=== PATIENT | female | born 1970 | race Caucasian/White ===

== ENCOUNTER 2018-03-23 12:39 | Emergency (ER) | payer OTHER ==
--- NOTE | 2018-03-23 13:36 | UC ---
Dental HPI - HPI Summary HPI Summary: 47 y/o female presents to the urgent care c/o Rt upper jaw dental pain since yesterday. Pt reports she was eating a cheeseburger and she fracture her molar. This morning she woke up w/ pain, swelling and it a taste " like infection". Pain s 12/26 w/ chewing. Pt has an appt w/ [facility] on Monday. Pt denies fever, trismus, SOB, chest pain, abdominal pain, N/V/D, MISHRA. - History of Current Complaint Chief Complaint: UCSkin Stated Complaint: DENTAL PAIN Time Seen by Provider: 03/23/18 13:35 Hx Obtained From: Patient ?: No Onset/Duration: Gradual Onset, Lasting Days - 1 day, Still Present, Worse Since - today Severity: Moderate Pain Intensity: 7 Pain Scale Used: 0-10 Numeric Aggravating Factor(s): Chewing Alleviating Factor(s): OTC Meds - Allergies/Home Medications Allergies/Adverse Reactions: Allergies Allergy/AdvReac Type Severity Reaction Status Date / Time amoxicillin Allergy Anaphylatic Verified 03/23/18 13:18 Shock bee venom protein (honey bee) Allergy Anaphylatic Verified 03/23/18 13:18 Shock cefaclor [From Ceclor] Allergy Hives Verified 03/23/18 13:18 Penicillins Allergy Anaphylatic Verified 03/23/18 13:18 Shock Home Medications: Home Medications EPINEPHrine [Epipen] 1 unit IM ONCE PRN 03/23/18 [History Confirmed 03/23/18] Propranolol HCl [Inderal LA] 60 mg PO ONCE PRN 03/23/18 [History Confirmed 03/23] SUMAtriptan succinate [Imitrex] 50 mg PO ONCE PRN 03/23/18 [History Confirmed ] PMH/Surg Hx/FS Hx/Imm Hx Previously Healthy: Yes Neurological History: Migraine - Surgical History Surgical History: Yes Surgery Procedure, Year, and Place: hysterectomy. . gallbladder removal. tooth removal. appendectomy - Family History Family History: Stroke - Social History Occupation: Employed Full-time Lives: With Family Alcohol Use: Occasionally Substance Use Type: None Smoking Status (MU): Light Every Day Tobacco Smoker Amount Used/How Often: 1 ppd Have You Smoked in the Last Year: Yes Household Exposure Type: Cigarettes Review of Systems Constitutional: Negative Skin: Negative Eyes: Negative ENT: Dental Pain - broken molar Respiratory: Negative Cardiovascular: Negative Gastrointestinal: Negative Genitourinary: Negative Motor: Negative Neurovascular: Negative Musculoskeletal: Negative Neurological: Negative Psychological: Negative Is Patient Immunocompromised?: No All Other Systems Reviewed And Are Negative: Yes Physical Exam - Summary Physical Exam Summary: Vital Signs Reviewed: Yes General: Well-Appearing, No Pain Distress, Well-Nourished female Eyes: Positive: Conjunctiva Clear - PERRLA, EOMI, ENT: Positive: Normal ENT inspection, Hearing grossly normal, Pharynx normal, TMs normal - B/L external ear canals clear,. Negative: Tonsillar swelling, Tonsillar exudate, Trismus Dental: Positive: Gross Decay/Caries w/ fracture molars #3 and 4 , Abscess @ - mild gingival swelling and erythema, tender to percussion. involves tissue surrounding the teeth #3 and 4, Cervical Lymphadenopathy - anterior-Periodontal : involves tissue surrounding the teeth. Periapical: Neck: Positive: Supple Respiratory: Positive: Chest non-tender, Lungs clear, Normal breath sounds, No respiratory distress Cardiovascular: Positive: RRR, No Murmur, Pulses Normal, Brisk Capillary Refill Abdomen Description: Positive: Nontender, No Organomegaly, Soft. Negative: CVA Tenderness (R), CVA Tenderness (L) Bowel Sounds: Positive: Present Musculoskeletal: Positive: Strength Intact, ROM Intact, No Edema Neurological Exam: Normal Psychological Exam: Normal Skin Exam: Normal Triage Information Reviewed: Yes Vital Signs: Initial Vital Signs Temp 97.7 F 03/23/18 13:12 Pulse 65 03/23/18 13:12 Resp 18 03/23/18 13:12 BP 119/68 03/23/18 13:12 Pulse Ox 100 03/23/18 13:12 Dental Complaint Course/Dx - Course Course Of Treatment: 47 y/o female presents to the urgent care c/o Rt upper jaw dental pain since yesterday. Pt reports she was eating a cheeseburger and she fracture her molar. This morning she woke up w/ pain, swelling and it a taste " like infection". Pain s 12/26 w/ chewing. Pt has an appt w/ [facility] on Monday. Pt denies fever, trismus, SOB, chest pain, abdominal pain, N/V/D, MISHRA. Hx obtained. Pt w/ Gross Decay/Caries w/ fracture molars #3 and 4 , Abscess @ - mild gingival swelling and erythema, tender to percussion. involves tissue surrounding the teeth #3 and 4 on examination. Pt with dental abscess on examination. Pt given viscous Lidocaine at the clinic to alleviate symptoms. Pt Rx Clindamycin PO and Ibuprofen PO for pain. Pt strongly advised to f/u with her Dentist as soon as possible further evaluation and treatment. D/c instructions explained. Pt understood and agreed with plan of care. Left the clinic ambulating. - Differential Dx/Diagnosis Differential Diagnosis/Dx: Dental Abscess, Dental Caries, Gingivitis, Odontogenic Pain, Peridontic Disease, Peritonsillar Abcess Provider Diagnoses: 1- Dental abscess on molar 3 and 4 Discharge - Sign-Out/Discharge Documenting (check all that apply): Patient Departure - D/c home All imaging exams completed and their final reports reviewed: No Studies - Discharge Plan Condition: Stable Disposition: HOME Prescriptions: Clindamycin Cap(NF) [Clindamycin Cap 300 mg Cap(NF)] 300 mg PO TID #30 cap Ibuprofen TAB* [Motrin TAB* 800 MG] 800 mg PO Q6H PRN #30 tab PRN Reason: dental pain Patient Education Materials: Dental Abscess (ED) Referrals: [facility] [place] [facility] [Outside] - 2 Days Additional Instructions: 1-Please take full course of antibiotic to avoid resistance. 2- Take Ibuprofen PO as instructed after meals to alleviate pain and swelling. 3- F/u with your Dentist or Dental List provided as soon as possible for further treatment. 4- If symptoms do not improve or worsen please return to the urgent care or f/u with your PCP 2 days for further evaluation and treatment - Billing Disposition and Condition Condition: STABLE Disposition: Home
== END 2018-03-23 14:10 | disposition home or self-care (01) ==
LOC: UCEAST 12:39
DX: K04.7 Periapical abscess without sinus (principal); Z88.0 Allergy status to penicillin; Z88.1 Allergy status to other antibiotic agents; F17.210 Nicotine dependence, cigarettes, uncomplicated
CPT/HCPCS: 99202; G0463

== ENCOUNTER 2019-04-17 19:22 | Emergency (ER) | payer MEDICAID, OTHER ==
--- NOTE | 2019-04-17 20:54 | UC ---
Complaint Female HPI - HPI Summary HPI Summary: 48 yo woman 15 years post TAH_BSO for endometriosus, with 1 week hx of progressive vulvar pain and awareness of an enlarging cyst on the anterior left labia. Has used monitat without relief. Has taken ibuprofen 3200mg today (800mg x 4 doses) and 650mg x 2 today. States no hx of abnormal paps or HPV. - History Of Current Complaint Chief Complaint: UCGU Stated Complaint: PERSONAL ISSUE Time Seen by Provider: 04/17/19 20:44 Hx Obtained From: Patient Onset/Duration: Gradual Onset, Lasting Days Timing: Constant Severity Initially: Moderate Severity Currently: Severe Pain Intensity: 7 Character: Sharp, Burning Aggravating Factor(s): Other - sitting, cannot put pressure on the perineal area. Alleviating Factor(s): Meds - overuse of ibuprofen. Associated Signs And Symptoms: Positive: Vaginal Bleeding/Discharge. Negative: Fever, Back Pain - Risk Factors Ectopic Risk Factor: Negative Ovarian Torsion Risk Factor: Negative - Allergies/Home Medications Allergies/Adverse Reactions: Allergies Allergy/AdvReac Type Severity Reaction Status Date / Time amoxicillin Allergy Anaphylatic Verified 04/17/19 19:36 Shock bee venom protein (honey bee) Allergy Anaphylatic Verified 04/17/19 19:36 Shock cefaclor [From Ceclor] Allergy Hives Verified 04/17/19 19:36 Penicillins Allergy Anaphylatic Verified 04/17/19 19:36 Shock Home Medications: Home Medications Ibuprofen TAB* [Motrin TAB* 800 MG] 800 mg PO Q6HR 04/17/19 [History Confirmed 04/17/19] PMH/Surg Hx/FS Hx/Imm Hx Previously Healthy: Yes - smoker Neurological History: Migraine - Surgical History Surgical History: Yes Surgery Procedure, Year, and Place: hysterectomy. . gallbladder removal. tooth removal. appendectomy - Family History Known Family History: Positive: Other - father has had stroke. 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 Lives: With Family Alcohol Use: Occasionally Substance Use Type: None Smoking Status (MU): Light Every Day Tobacco Smoker Amount Used/How Often: 1 ppd Have You Smoked in the Last Year: Yes Household Exposure Type: Cigarettes Review of Systems All Other Systems Reviewed And Are Negative: Yes Constitutional: Positive: Negative Skin: Positive: Negative Eyes: Positive: Negative ENT: Positive: Negative Cardiovascular: Positive: Negative Gastrointestinal: Positive: Negative Genitourinary: Positive: Dysuria, Vaginal/Penile Discharge Motor: Positive: Negative Neurovascular: Positive: Negative Musculoskeletal: Positive: Negative Neurological: Positive: Negative Psychological: Positive: Negative Physical Exam Triage Information Reviewed: Yes Appearance: Well-Appearing, Pain Distress - moderate. Vital Signs: Initial Vital Signs Temp 98.5 F 04/17/19 19:33 Pulse 79 04/17/19 19:33 Resp 12 04/17/19 19:33 BP 124/68 04/17/19 19:33 Pulse Ox 99 04/17/19 19:33 Eye Exam: Normal Neck exam: Normal Respiratory: Positive: Lungs clear, Normal breath sounds, No respiratory distress Cardiovascular: Positive: RRR, No Murmur Abdomen Description: Positive: Nontender, No Organomegaly, Soft Pelvic Exam: Positive: Other - Outer labia are lichenified and indurated, with severe vaginal atrophy and scant discharge. Firm 3 cm nodule in anterior left labia without erythema or pointing, no fluctuance. Cannot attempt scec or bimanual exam due to pain. Musculoskeletal Exam: Normal Neurological Exam: Normal Psychological Exam: Normal Diagnostics - Laboratory Lab Results: Urine with trace of leuks. Complaint Female Dx - Course Course Of Treatment: doxy for treatment of infected cyst, Referral to [facility] for evaluation of severe lichenification and atrophy. Hot compresses, add hydrocodone for pain control for a few days. - Differential Dx/Diagnosis Differential Diagnosis/HQI/PQRI: Urinary Tract Infection, Other - labial cyst Provider Diagnosis: Labial cyst, Atrophic vaginitis Discharge ED - Sign-Out/Discharge Documenting (check all that apply): Patient Departure All imaging exams completed and their final reports reviewed: No Studies - Discharge Plan Condition: Good Disposition: HOME Prescriptions: DOXYcycline CAP(*) [DOXYcycline 100MG CAP(*)] 100 mg PO BID #14 cap HYDROcodone/ACETAMIN 5-325 MG* [[place] 5-325 TAB*] 2 tab PO Q6H PRN #20 tab MDD 8 PRN Reason: Pain - Severe Patient Education Materials: Abscess (ED), Vaginal Atrophy (ED) Referrals: No Primary Care Phys,NOPCP [Primary Care Provider] - Srikanth Nova MD [Medical Doctor] - Additional Instructions: Continue hot compresses to the perineal area 3 or 4 times daily. Doxycycline has been prescribed as antibiotic treatment for the cyst. Please call Dr. Nova's office in the morning to arrange evaluation of forming abscess, severe vaginal atrophy, and lichenification of the labia. Maximum daily dose of ibuprofen is 2400mg. Max daily use of acetpahminophe in 3000mg. While using hydrocodone, do not use additional acetaminophen. BDAffirm result is pending. - Billing Disposition and Condition Condition: GOOD Disposition: Home
[2019-04-17] MEDS ORDERED: DOXYcycline CAP(*) 100 MG PO ONE (21:02)
[2019-04-17] MEDS ORDERED: HYDROcodone/ACETAMIN 5-325 MG* 1 TAB PO ONE (21:05)
[2019-04-17] MEDS ORDERED: Lidocaine 2% JELLY* 10 ML JELLY TOPICAL ONE (21:12)
[2019-04-17] MEDS ORDERED: Lidocaine 2% VISCOUS* 15 ML UDC PO ONE (21:17)
[2019-04-17 21:55] VITALS: BP 122/70
--- NOTE | 2019-04-19 14:52 | UC ---
- Progress Note Progress Note: Urine culture negative - can stop doxycycline. BV positive - rx for flagyl sent. Course/Dx - Diagnoses Provider Diagnoses: Labial cyst, Atrophic vaginitis Discharge ED - Sign-Out/Discharge Documenting (check all that apply): Post-Discharge Follow Up All imaging exams completed and their final reports reviewed: No Studies - Discharge Plan Condition: Good Disposition: HOME Prescriptions: DOXYcycline CAP(*) [DOXYcycline 100MG CAP(*)] 100 mg PO BID #14 cap HYDROcodone/ACETAMIN 5-325 MG* [[place] 5-325 TAB*] 2 tab PO Q6H PRN #20 tab MDD 8 PRN Reason: Pain - Severe metroNIDAZOLE [Flagyl 500 MG TAB] 500 mg PO BID #14 tab Patient Education Materials: Abscess (ED), Vaginal Atrophy (ED) Referrals: Srikanth Nova MD [Medical Doctor] - No Primary Care Phys,NOPCP [Primary Care Provider] - Additional Instructions: Continue hot compresses to the perineal area 3 or 4 times daily. Doxycycline has been prescribed as antibiotic treatment for the cyst. Please call Dr. Nova's office in the morning to arrange evaluation of forming abscess, severe vaginal atrophy, and lichenification of the labia. Maximum daily dose of ibuprofen is 2400mg. Max daily use of acetpahminophe in 3000mg. While using hydrocodone, do not use additional acetaminophen. BDAffirm result is pending. - Billing Disposition and Condition Condition: GOOD Disposition: Home
== END 2019-04-17 21:40 | disposition home or self-care (01) ==
LOC: UCEAST 19:22
DX: N90.7 Vulvar cyst (principal); N76.0 Acute vaginitis; G43.909 Migraine, unspecified, not intractable, without status migrainosus; Z88.0 Allergy status to penicillin; Z90.710 Acquired absence of both cervix and uterus; Z91.030 Bee allergy status; Z88.1 Allergy status to other antibiotic agents; F17.210 Nicotine dependence, cigarettes, uncomplicated
CPT/HCPCS: 81003; 87086; 87480; 87510; 87660; 99213; A9270-GY; G0463